=== PATIENT | female | born 1945 | race Caucasian/White ===

== ENCOUNTER 2019-06-03 08:26 | Observation (INO) | payer MEDICARE, OTHER ==
[~2019-06-03] VITALS: Ht 160 cm; Wt 74.4 kg
[~2019-06-03 08:26] MED LIST: ALENDRONATE SOD70 MG PO; CELECOXIB200 MG PO; CEPHALEXIN500 MG PO; HYDROCODON-ACE1 EAC8 PO; KEFLEX500 MG PO; MULTIVITAMINS1 EAC7 PO; NORCO 10-325 T1 EACH PO; NORCO 5-325 TA1 EACH PO; RECTICARE30 GM TOP; VITAMIN D2000 UNI1 PO; ZOFRAN4 MG PO
--- OUTSIDE RECORDS SUMMARY | 2019-06-03 08:28 | XMS ---
PreManage Notification: SAMUEL BOYCE [employer] Events No recent Security Events currently on file CRITERIA MET - [facility] - 2 Visits in 30 Days CARE PROVIDERS RISHI VINCENT Internal Medicine 06/01/2019-Current PHONE: Unknown Koko Connolly MD PHONE: Unknown Calista has no Care Guidelines for this patient. Madhuri VISIT COUNT (12 MO.) [address] [place] [address] TOTAL 4 NOTE: Visits indicate total known visits. ED/UCC VISIT TRACKING (12 MO.) 06/03/2019 08:27 [facility] TYPE: Emergency COMPLAINT: - N/V,CHEST DISCOMFORT 05/31/2019 13:58 [facility] TYPE: Emergency COMPLAINT: - RIB PAIN, INJ 05/29/2019 13:27 [facility] TYPE: Emergency COMPLAINT: - RIB PAIN, INJ DIAGNOSES: - Other [facility] (current) drug therapy - Allergy status to other drugs, medicaments and biological substances status - Essential (primary) hypertension - Personal history of nicotine dependence - Pleurodynia - Fall on same level from slipping, tripping and stumbling with subsequent striking against other object, initial encounter - Personal history of malignant neoplasm of breast - Fracture of one rib, left side, initial encounter for closed fracture 09/24/2018 19:48 [facility] TYPE: Emergency COMPLAINT: - GLF FALL DIAGNOSES: - Other [facility] (current) drug therapy - Essential (primary) hypertension - Pain in left shoulder - Major depressive disorder, single episode, unspecified - Hyperlipidemia, unspecified - Contusion of left shoulder, initial encounter - Personal history of nicotine dependence - Fall on same level from slipping, tripping and stumbling with subsequent striking against other object, initial encounter - Contusion of left hip, initial encounter INPATIENT VISIT TRACKING (12 MO.) No inpatient visits to display in this time frame [email or web address]
--- NOTE | 2019-06-03 12:17 | NUR ---
1125: PT ARRIVED TO MED SURG VIA A STRECHER FROM ER. THE PT STATES HE PAIN IS A 10+ WITH MOVEMENT BUT THAT IT DECREASED TO A 2 AT REST. SHE STATES THAT THE PAIN IS IN HER LEFT CHEST WALL DUE TO HER FALL ON THE 3TH. VSS AND SHE WAS ORIENTED TO THE ROOM. SEE ADMIT ASSESSMENT.
--- NOTE | 2019-06-03 12:21 | NUR ---
IS GIVEN TO THE PT AND SHE WAS INSTRUCTED IN IT'S USE AND USED IT AND HIS 1750.
[2019-06-03] MEDS ORDERED: SYSTANE GEL10 GM OPTH (13:02)
[2019-06-03] MEDS ORDERED: SYSTANE 0.3-0.1 EACH OPTH (13:03)
--- NOTE | 2019-06-03 13:06 | NUR ---
MEDICATION RECONCILIATION COMPLETED WITH MEDICATION LIST AND PATIENT INTERVEW.
--- NOTE | 2019-06-03 13:23 | EKG ---
[facility] [address] [facility] [place] [address] Signed Sinus tachycardia Left ventricular hypertrophy with repolarization abnormality Cannot rule out Septal infarct , age undetermined Abnormal ECG No previous ECGs available Confirmed by ALEX DENNIS MD ([id number]) on 06/03/2019 1:23:35 PM Electronically Signed By: ALEX DENNIS MD 06/03/19 1323 PATIENT NAME: SAMUEL BOYCE Electrocardiogram DATE OF : 41 PHYSICIAN: ALEX DENNIS MD REPORT #: [id number] REPORT IS CONFIDENTIAL AND NOT TO BE RELEASED WITHOUT AUTHORIZATION
--- NOTE | 2019-06-03 14:20 | NUR ---
PT WAS SLEEPING UNTIL HER SO (KELSEA) ARRIVED TO THE ROOM. SHE WAS ASSISTED TO THE BR AND VOIDED. SHE STATES SHE HAS PAIN WITH MOVEMENT AND STATES IT IS NOW GONE THAT SHE IS BACK TO BED. PT NOW VISITING WITH KELSEA.
--- NOTE | 2019-06-03 17:16 | NUR ---
PT SITTING UP AT THE BEDSIDE EATING HER DINNER AT THIS TIME AND APPEARS IN NO DISTRESS. PT STATES SHE IS ENJOYING HER MEAL AND THAT IT IS VERY GOOD.
--- NOTE | 2019-06-03 17:45 | NUR ---
PT AT 100% OF HER DINNER AND DRANK A GOOD AMOUNT OF FLUID. PT ABLE GET HERSELF IN AND OUT OF BED AND WALK TO THE BR AND USE THE TOLIET BY HERSELF. UPON GETTING BACK TO BED SHE DID STATES IT CAUSED SOME PAIN AND SHE STATES, "WHY ARE YOU NOT GIVING ME SOMETHING"? SHE WAS INFORMED THAT SHE HAS BEEN GIVEN MEDICATIONS AND THEY WERE AGAIN DECRIBED TO HER AND WHY THEY WERE GIVEN. SHE WAS ALSO INFORMED THAT THERE IS ADDITIONAL MEDICATION ORDERED WHICH ARE NOT SCHEDULED AND THEY ARE GIVEN PRN. PT NOW STATES THAT THE PAIN IS GOING AWAY WITHOUT ADDITIONAL MEDICATIONS.
--- NOTE | 2019-06-03 18:51 | NUR ---
PT RESTING IN HER BED AND SHE STATES SHE IS DOING "OKAY".
--- NOTE | 2019-06-03 20:30 | NUR ---
UP to br, voided, back to bed, requirinf minimum of assist, holding L arm and r hand touching L mid lateral side, c/o 9/10 pain, medicated with Oxycodone 5mg po, Lidoderm patch removed L side. Using IS up to 1500 for this RN. Very cooperative with assessment. IVF infusing RW w/o problems. took Senna tabs, med instruction of rkhde-[id number]-[id number],ivf done, questions answered to her satisfaction. In bed. L eye w home tape in upper L eyelid. night mask given at her request.
--- NOTE | 2019-06-03 22:56 | NUR ---
ANSWERED CALL LIGHT. SBA TO THE BATHROOM AND BACK TO BED. CALL LIGHT AND SIDE TABLE IN REACH.
--- NOTE | 2019-06-04 00:20 | NUR ---
up to br, voided, back to bed, tolerated fait, c/o l rib pain. denies need for pain med at this time, denies need for ice or warm packs. call light and fluids at bedside
--- NOTE | 2019-06-04 01:13 | NUR ---
SBA TO THE BATHROOM. PATIENT IS BACK IN BED. CALL LIGHT AND TABLE IN REACH.
--- NOTE | 2019-06-04 02:28 | NUR ---
PT UP TO BR, VOIDED, BACK TO BED WITH ONE ASSIST, TOLERATED GOOD. USES L HAND TO COMB HAIR AND STRAIGHTEN BED W/O PROBLEMS FIRST, THEN C/O L RIB PAIN, DENIES NEED FOR PAIN MED WHEN ASKED, IVF INFUSING W/O PROBLEMS, GOOD CMS L ARM, NO CREPITUS NOTED L LATERAL CHEST
--- NOTE | 2019-06-04 02:40 | NUR ---
SBA TO BATHROOM. PATIENT IS BACK IN BED.
--- NOTE | 2019-06-04 05:04 | NUR ---
Pt currently resting, eyes closed. Was medicated 1x with Oxycodone 5mg per c/o L rib fx. IVF sl at this time. Pt up to BR several times, voiding QS.
--- NOTE | 2019-06-04 05:30 | NUR ---
up to br, voided, back to bed, c/o excessive 10/10 l rib pain. Medicated with 1 Tylenol 500mg po and Oxycodone 5mg po.
--- NOTE | 2019-06-04 07:24 | NUR ---
bedside report received from casper rn, pt sitting up on edge of bed requests more ice tea denies discomforts or any other needs.
--- NOTE | 2019-06-04 08:08 | NUR ---
BEDSIDE REPORT RECEIVED FROM JEREMÍAS RN. PT SLEEPING AT THAT TIME
--- NOTE | 2019-06-04 09:35 | NUR ---
PT SLEEPING. WILL RETURN LATER.
--- NOTE | 2019-06-04 10:24 | NUR ---
PT UP WORKS WITH P/T THEN BACK TO ROOM VISITING ACTIVELY WITH A GUEST. DENIES NEEDS AT THIS TIME NO C/O DISCOMFORTS
[2019-06-04] MEDS ORDERED: CELECOXIB200 MG PO (11:43)
[2019-06-04] MEDS ORDERED: OXYCODONE HCL5 MG PO (11:44)
--- NOTE | 2019-06-04 12:04 | NUR ---
PT ALERT, ORIENTED AND SUPPORTED BY HER . PT SEEMED COMFORTABLE WITH MY PRESENCE,AND SOON BEGAN TO GIVE ME A RUNDOWN ON HER MEDICAL HISTORY.BOTH WERE PLEASANT, THANKED ME FOR COMING IN-EXTENDED A BLESSING AND WILL FOLLOW NEEDED
== END 2019-06-04 12:40 | disposition home or self-care (01) ==
LOC: ED 08:26 → MS 08:28
PROVIDERS: ADMIT Internal Medicine
DX: S22.31XA Fracture of one rib, right side, initial encounter for closed fracture (principal); E86.0 Dehydration; G89.4 Chronic pain syndrome; M81.0 Age-related osteoporosis without current pathological fracture; R26.2 Difficulty in walking, not elsewhere classified; Z88.5 Allergy status to narcotic agent; Z87.891 Personal history of nicotine dependence; Z85.3 Personal history of malignant neoplasm of breast; Z79.1 Long term (current) use of non-steroidal anti-inflammatories (NSAID); Z79.83 Long term (current) use of bisphosphonates; Z79.891 Long term (current) use of opiate analgesic; Z79.899 Other long term (current) drug therapy
CPT/HCPCS: 71046; 80053; 81001; 85025; 93005; 93010; 94667; 96361; 96374; 96375; 97162; 99285-25; G0378; J1885; J2405; J7120; J7121

== ENCOUNTER 2022-10-02 12:47 | Emergency (ER) | payer MEDICARE, OTHER ==
[~2022-10-02] VITALS: Ht 160 cm; Wt 74.4 kg
[~2022-10-02 12:47] MED LIST changes: +OXYCODONE HCL5 MG PO; +SYSTANE 0.3-0.1 EACH OPTH; +SYSTANE GEL10 GM OPTH
[2022-10-02] MEDS ORDERED: AMLODIPINE BESYL5 MG PO (14:07)
[2022-10-02] MEDS ORDERED: ATORVASTATIN CA10 MG PO (14:08)
[2022-10-02] MEDS ORDERED: DULOXETINE HCL60 MG PO (14:08)
[2022-10-02] MEDS ORDERED: HYDROCODON-ACE1 EA10 PO (15:37)
== END 2022-10-02 15:50 | disposition home or self-care (01) ==
LOC: ED 12:47
DX: S20.211A Contusion of right front wall of thorax, initial encounter (principal); I10 Essential (primary) hypertension; E78.5 Hyperlipidemia, unspecified; Z87.891 Personal history of nicotine dependence; Z91.030 Bee allergy status; Z88.8 Allergy status to other drugs, medicaments and biological substances; Z79.899 Other long term (current) drug therapy; W01.0XXA Fall on same level from slipping, tripping and stumbling without subsequent striking against object, initial encounter
CPT/HCPCS: 71101; 99283-25

== ENCOUNTER 2023-07-31 15:15 | Emergency (ER) | payer MEDICARE, OTHER ==
[~2023-07-31] VITALS: Ht 160 cm; Wt 74.4 kg
[~2023-07-31 15:15] MED LIST changes: +AMLODIPINE BESYL5 MG PO; +ATORVASTATIN CA10 MG PO; +DULOXETINE HCL60 MG PO; +HYDROCODON-ACE1 EA10 PO
[2023-07-31] MEDS ORDERED: OXYCODONE HCL5 MG PO (17:26)
[2023-07-31 17:57] VITALS: BP 174/71
--- NOTE | 2023-07-31 21:51 | EKG ---
[facility] [address] [facility] [place] [address] Signed Atrial fibrillation with slow ventricular response with a competing junctional pacemaker Left axis deviation Minimal voltage criteria for LVH, may be normal variant ( Brennon product ) Anteroseptal infarct (cited on or before 03-JUN-2019) ST \T\ T wave abnormality, consider lateral ischemia Abnormal ECG When compared with ECG of 03-JUN-2019 08:40, Atrial fibrillation has replaced Sinus rhythm Vent. rate has decreased BY 54 BPM QT has shortened Confirmed by Darren Lopez MD () on 07/31/2023 9:50:55 PM Electronically Signed By: DARREN LOPEZ MD 07/31/232150 PATIENT NAME: SAMUEL BOYCE Electrocardiogram DATE OF : 41 PHYSICIAN: DARREN LOPEZ MD REPORT #: [id number] REPORT IS CONFIDENTIAL AND NOT TO BE RELEASED WITHOUT AUTHORIZATION
== END 2023-07-31 17:58 | disposition home or self-care (01) ==
LOC: ED 15:15
DX: S20.211A Contusion of right front wall of thorax, initial encounter (principal); W10.9XXA Fall (on) (from) unspecified stairs and steps, initial encounter; I10 Essential (primary) hypertension; E78.5 Hyperlipidemia, unspecified; F32.A Depression, unspecified; Z87.891 Personal history of nicotine dependence; Z88.5 Allergy status to narcotic agent; Z91.030 Bee allergy status; Z79.899 Other long term (current) drug therapy
CPT/HCPCS: 71101; 93005; 93010

== ENCOUNTER 2025-02-20 04:25 | Inpatient (IN) | payer MEDICARE, OTHER ==
[2025-02-20] VITALS (27 sets, daily range): BP systolic 86–131; BP diastolic 49–108
[~2025-02-20] VITALS: Ht 160 cm; Wt 52.4 kg
[2025-02-20] MEDS ORDERED: LIPITOR10 MG PO (04:41)
[2025-02-20 04:50] LABS: PH, VENOUS 7.413 (7.31-7.41)
[2025-02-20 04:52] LABS: HEMATOCRIT 34.3 % (35.0-50.0); HEMOGLOBIN 11.3 g/dL (12.0-18.0); MCH 27.9 (27-36); MCV 84.5 fl (81-99); PLATELET COUNT 494 K/uL (140-440); RBC 4.06 M/ul (4.3-5.7); RDW 15.2 (10.5-15.0)
[2025-02-20] MEDS ORDERED: ALBUTEROL SULFATE 0.5% 2.5 MG/0.5 ML VIAL INH ONE (05:00)
[2025-02-20] MEDS ORDERED: CEFTRIAXONE SODIUM 1 GM in SODIUM CHLORIDE 0.9% 100 ML IV ONE (05:00)
[2025-02-20] MEDS ORDERED: AZITHROMYCIN 500 MG in DEXTROSE 5% 250 ML IV ONE (05:00)
[2025-02-20 05:02] LABS: EOSINOPHILS, MANUAL DIFF 1; LYMPHOCYTES, MANUAL DIFF 9; MONOCYTES, MANUAL DIFF 5; NEUTROPHILS, MANUAL DIFF 85
[2025-02-20 05:15] LABS: ALBUMIN 1.9 g/dL (3.4-5.0); ALBUMIN/GLOBULIN RATIO 0.37 (1.1-2.4); ANION GAP 13.5 (7-21); BILIRUBIN, TOTAL 0.3 mg/dL (0.2-1.0); BUN/CREATININE RATIO 29.03 (6.0-28.6); CALCIUM 9.4 mg/dL (8.5-10.1); CREATININE, SERUM 0.93 mg/dL (0.55-1.02); POTASSIUM 3.5 mmol/L (3.5-5.1)
[2025-02-20] MEDS ORDERED: ALBUTEROL SULFATE 0.5% 2.5 MG/0.5 ML VIAL ONE (05:18)
[2025-02-20 05:39] LABS: LACTIC ACID, BLOOD 2.3 mmol/L (0.4-2.0)
[2025-02-20 05:44] LABS: CORONAVIRUS COVID-19 AG NEGATIVE (NEGATIVE); INFLUENZA A AG NEGATIVE (NEGATIVE); INFLUENZA B AG NEGATIVE (NEGATIVE)
[2025-02-20] MEDS ORDERED: MORPHINE SULFATE 4 MG/ML VIAL IV ONE (06:15)
[2025-02-20] MEDS ORDERED: ondansetron HCL 4 MG/2 ML VIAL IV ONE (06:15)
[2025-02-20] MEDS ORDERED: HYDROCODONE/ACETA 5/325 TAB PO ONE (06:30)
[2025-02-20] MEDS ORDERED: ALBUTEROL/IPRATROPIUM 3 ML NEB ONE (07:13)
[2025-02-20] MEDS ORDERED: ondansetron HCL 4 MG/2 ML VIAL IV PRN ×2 (07:45→09:15)
[2025-02-20] MEDS ORDERED: MORPHINE SULFATE 4 MG/ML VIAL IV PRN (07:45)
[2025-02-20] MEDS ORDERED: ALBUTEROL SULFATE 0.083% 3 ML VIAL INH PRN (07:45)
--- NOTE | 2025-02-20 07:53 | EKG ---
[facility] [address] [facility] [place] [address] Signed Atrial fibrillation with rapid ventricular response with premature ventricular or aberrantly conducted complexes Minimal voltage criteria for LVH, may be normal variant ( Brennon product ) Anteroseptal infarct , age undetermined Incomplete left bundle branch block Abnormal ECG No previous ECGs available Confirmed by John Sellers MD ([id number]) on 02/20/2025 7:53:30 AM Electronically Signed By: JOHN SELLERS MD 02/20/25 0753 PATIENT NAME: SAMUEL BOYCE Electrocardiogram DATE OF : 41 PHYSICIAN: JOHN SELLERS MD REPORT #: [id number] REPORT IS CONFIDENTIAL AND NOT TO BE RELEASED WITHOUT AUTHORIZATION
[2025-02-20] MEDS ORDERED: ESMOLOL HCL 250 ML IV SCH (08:00)
[2025-02-20] MEDS ORDERED: ACETAMINOPHEN 325 MG TAB PO PRN (09:15)
[2025-02-20] MEDS ORDERED: FUROSEMIDE 40 MG/4 ML VIAL IV STA (11:11)
[2025-02-20] MEDS ORDERED: POTASSIUM CHLORIDE 20 MEQ/15 ML CUP PO ONE (11:15)
[2025-02-20] MEDS ORDERED: methylPREDNISolone SOD SUCC 40 MG/ML VIAL IV SCH (11:15)
--- NOTE | 2025-02-20 11:44 | EKG ---
[facility] [address] [facility] [place], [place] [address] Signed Atrial fibrillation with rapid ventricular response Incomplete left bundle branch block Anteroseptal infarct , age undetermined Abnormal ECG When compared with ECG of 20-Feb-2025 No significant change was found Confirmed by Rigoberto Sellers MD ([id number]) on 02/20/2025 11:44:13 AM Electronically Signed By: RIGOBERTO SELLERS MD 02/20/25 1144 PATIENT NAME: SAMUEL BOYCE Electrocardiogram DATE OF : 41 PHYSICIAN: RIGOBERTO SELLERS MD REPORT #: [id number] REPORT IS CONFIDENTIAL AND NOT TO BE RELEASED WITHOUT AUTHORIZATION
[2025-02-20] MEDS ORDERED: PHARMACY RENAL DOSE ADJUSTMENT 1 DOSE MISC PO SCH (12:00)
[2025-02-20] MEDS ORDERED: IPRATROPIUM BROMIDE 2.5 ML VIAL INH SCH (12:00)
[2025-02-20] MEDS ORDERED: ALBUTEROL/IPRATROPIUM 3 ML NEB INH SCH (12:00)
[2025-02-20] MEDS ORDERED: fentaNYL citrate 100 MCG/2 ML VIAL IV PRN (12:15)
[2025-02-20] MEDS ORDERED: LIDOCAINE PATCH REMOVAL 1 EA TD PRN (12:15)
[2025-02-20] MEDS ORDERED: POTASSIUM CHLORIDE 40 MEQ,LIDOCAINE HCL 1% 40 MG in DEXTROSE 5% 250 ML IV ONE (15:30)
[2025-02-20] MEDS ORDERED: HEPARIN SOD,PORK IN 0.45% NACL 500 ML IV SCH (20:30)
[2025-02-20] MEDS ORDERED: HEParin SOD (PORCINE) 5,000 UNIT/ML VIAL IV ONE (20:30)
[2025-02-20 20:47] LABS: PROTIME 12.6 Sec (11.2-14.2)
[2025-02-21] MEDS ORDERED: ENOXAPARIN SODIUM 40 MG/0.4 ML SYR SUB-Q SCH (09:00)
--- NOTE | 2025-02-21 22:05 | EKG ---
[facility] [address] [facility] [place] [address] Signed Atrial fibrillation with premature ventricular or aberrantly conducted complexes Septal infarct (cited on or before 20-FEB-2025) ST \T\ T wave abnormality, consider lateral ischemia Abnormal ECG When compared with ECG of 20-FEB-2025 08:11, Nonspecific T wave abnormality no longer evident in Inferior leads T wave inversion more evident in Lateral leads Confirmed by Darren Lopez MD () on 02/21/2025 10:04:54 PM Electronically Signed By: DARREN LOPEZ MD 02/21/252204 PATIENT NAME: SAMUEL BOYCE Electrocardiogram DATE OF : 41 PHYSICIAN: DARREN LOPEZ MD REPORT #: [id number] REPORT IS CONFIDENTIAL AND NOT TO BE RELEASED WITHOUT AUTHORIZATION
== END 2025-02-20 21:25 | disposition short-term general hospital (02) | DRG 280 ==
LOC: ED 04:25 → CCU 06:35 → EDBD 06:35 → CCU 06:35
PROVIDERS: Emergency Medicine; Family Medicine; ADMIT Student in an Organized Health Care Education/Training Program; ATTEND Student in an Organized Health Care Education/Training Program
PROC: 5A09357 Assistance with Respiratory Ventilation, Less than 24 Consecutive Hours, Continuous Positive Airway Pressure (ICD-10-PCS; principal; 2025-02-20)
DX: I48.91 Unspecified atrial fibrillation (principal); J96.01 Acute respiratory failure with hypoxia; I21.4 Non-ST elevation (NSTEMI) myocardial infarction; J81.1 Chronic pulmonary edema; F17.210 Nicotine dependence, cigarettes, uncomplicated; I10 Essential (primary) hypertension; E78.00 Pure hypercholesterolemia, unspecified; J44.9 Chronic obstructive pulmonary disease, unspecified; F10.90 Alcohol use, unspecified, uncomplicated; D72.829 Elevated white blood cell count, unspecified; I44.7 Left bundle-branch block, unspecified; Z90.13 Acquired absence of bilateral breasts and nipples; Z79.899 Other long term (current) drug therapy
CPT/HCPCS: 36415; 51702; 71045; 71260; 80053; 82803; 83605; 83880; 84484; 85025; 85610; 85730; 93005; 93010; 93306; 94640; 94644; 94660; 94799; 99291; J0456; J0696; J1644; J1938; J2270; J2405; J2919; J3010; J3480; J3490; J7060; Q9967